=== PATIENT | female | born 1970 | race Caucasian/White ===

== ENCOUNTER 2020-02-18 09:03 | Outpatient (CLI) | payer BC, SELFPAY ==
[2020-02-19 10:14] LABS: T3 Total 209 ng/dL (76-181)
== END 2020-02-18 09:04 | disposition home or self-care (01) ==
LOC: LAB 09:07
PROVIDERS: PCP Emergency Medicine; Visit Provider Internal Medicine
DX: E03.4 Atrophy of thyroid (acquired) (principal); E03.9 Hypothyroidism, unspecified; E66.9 Obesity, unspecified
CPT/HCPCS: 36415; 84439; 84480; 99204

== ENCOUNTER 2020-04-07 07:00 | Outpatient (CLI) | payer BC, SELFPAY ==
--- NOTE | 2020-04-07 07:15 | US_ITS ---
WS: [id number] ULTRASOUND THYROID TECHNIQUE: Ultrasound of the thyroid. CLINICAL INFORMATION: hypothyroid since age 2, assess presence size of thyroid COMPARISON: None. FINDINGS: Thyroid: Diminutive thyroid gland with heterogeneous thyroid echotexture. No dominant nodules. Right thyroid lobe: 1.6 cm x 0.9 cm x 0.8 cm Left thyroid lobe: 1.5 cm x 1.0 cm x 0.9 cm. Isthmus: 0.1 mm. Cervical lymphadenopathy: None. US/US thyroid [id number] IMPRESSION: Diminutive thyroid with heterogeneous echotexture. No dominant nodules.
== END 2020-04-07 07:01 | disposition home or self-care (01) ==
LOC: RAD 07:06
PROVIDERS: PCP Emergency Medicine; Visit Provider Internal Medicine
DX: E03.9 Hypothyroidism, unspecified (principal)
CPT/HCPCS: 76536

== ENCOUNTER → 2020-05-11 13:11 | Outpatient (BNVA) | payer BC, SELFPAY | PROVIDERS: PCP Emergency Medicine; Visit Provider Internal Medicine | DX: E03.4 Atrophy of thyroid (acquired) (principal); E03.9 Hypothyroidism, unspecified; E66.9 Obesity, unspecified; F32.9 Major depressive disorder, single episode, unspecified; L50.9 Urticaria, unspecified | CPT/HCPCS: 99215 ==

== ENCOUNTER 2020-05-11 14:11 | Outpatient (CLI) | payer BC, SELFPAY ==
[2020-05-11 16:03] LABS: Free T4 Free Thyroxine 1.25 ng/dL (0.82-1.77); Thyroid Stimulating Hormone 1.03 uIU/mL (0.27-4.20)
[2020-05-12 13:33] LABS: Thyroid Peroxidase Antobodies 1 IU/mL (<9)
[2020-05-13 04:42] LABS: T3 Total 100 ng/dL (76-181)
== END 2020-05-11 14:12 | disposition home or self-care (01) ==
PROVIDERS: PCP Emergency Medicine; Visit Provider Internal Medicine
DX: E03.4 Atrophy of thyroid (acquired) (principal); E03.9 Hypothyroidism, unspecified
CPT/HCPCS: 36415; 84439; 84443; 84480; 86376